=== PATIENT | male | born 1995 | race Caucasian/White ===

== ENCOUNTER 2021-06-20 15:57 | Emergency (ER) | payer SELFPAY ==
[2021-06-20] MEDS ORDERED: ONDANSETRON 4 MG/2 ML INJ IV ONE (17:00)
[2021-06-20] MEDS ORDERED: HYDROmorphone 1 MG/1 ML INJ IV ONE (17:00)
--- NOTE | 2021-06-20 17:03 | Event Note ---
ED Screening Note Date of service: 06/20/21 Time: 17:01 ED Screening Note: 26-year-old male patient presents to the emergency department with complaints of nontraumatic right testicular pain/swelling progressively worsening for 4 days. General: Awake, appropriately interactive, no acute distress. Neck: Supple. Full range of motion intact. Cardiovascular: Normal peripheral perfusion. Pulmonary: No respiratory distress. Patient is speaking normally without use of accessory muscles. Genitourinary: Color Checker (Vane, registration) present. Significant swelling to right testicle with exquisite tenderness and diffuse erythema. Skin: No apparent rashes or lesions. Neurological: No facial asymmetry. Speech is clear. Follows commands. Patient is alert and oriented. Musculoskeletal: Moves all four extremities spontaneously with normal range of motion. Psych: Cooperative. Appropriate mood and affect. High clinical suspicion for testicular torsion. Ultrasound ordered. Attending emergency physician aware. I have greeted and performed a focused rapid initial assessment of this patient. A comprehensive ED assessment and evaluation of the patient, analysis of all test results, and completion of the medical decision-making process will be conducted by additional ED providers. This initial assessment/diagnostic orders/clinical plan/treatment(s) is/are subject to change based on patients health status, clinical progression and re-assessment. Further treatment and workup at subsequent clinical provider's discretion. Patient/guardian urged not to elope from the ED as their condition may be serious if not clinically assessed and managed.
--- NOTE | 2021-06-20 19:06 | Ultrasound Report ---
ULTRASOUND SCROTUM INDICATION / CLINICAL INFORMATION: testicular torsion. COMPARISON: None available. FINDINGS -- RIGHT: TESTIS: No normal appearing testicle is identified. A mass is seen measuring 8.5 x 6.7 x 7.2 cm. A se cond area seen anterior to this mass measures 1.9 x 0.6 x 2 cm. FINDINGS -- LEFT: TESTIS: Size = 4.6 x 1.8 x 2.7 cm. - Appearance: No significant abnormality. - Cyst / Mass: None. - Color Doppler Flow: No significant abnormality. EPIDIDYMIS: No significant abnormality. HYDROCELE: None. VARICOCELE: None demonstrated. ADDITIONAL FINDINGS: None. IMPRESSION: 1. No normal appearing right-sided testicle. What is thought to be a small compressed testicle is see n anterior to a large scrotal mass of uncertain etiology. This contains areas of internal calcificati on and is suspicious. 2. Left testicle normal in appearance. Signer Name: Dominic Huff MD Signed: 06/20/2021 7:01 PM Workstation Name: [id number]
--- NOTE | 2021-06-20 23:47 | Emergency Department Report ---
ED Male HPI - General Chief complaint: Urogenital-Male Stated complaint: SWOLLEN TESTICLE Time Seen by Provider: 06/20/21 23:15 Source: patient Mode of arrival: Ambulatory Limitations: No Limitations - History of Present Illness Initial comments: Patient is a 26-year-old male who presents emergency room with complaints of right testicular pain and swelling. Patient states it started 4 days ago. Patient states the pain is 0 out of 10 when he is laying down and resting. Patient states he only has pain when he is upright or walking. Patient states the pain is mild and is a 3 out of 10. Patient states at this time is not having any pain. Patient states that the right testicle is hard. Patient denies penile discharge. Patient denies dysuria. Patient denies fever or chills. Patient denies abdominal pain. Patient denies any other symptoms. Patient denies any other pain. Patient denies recent travel. Patient denies recent international travel. Patient denies exposure to the novel coronavirus. Patient denies sick contacts. Patient denies fever and chills. Patient denies cough. Patient denies diarrhea. Patient denies coming in contact with anybody with symptoms of the novel coronavirus. Complaint: testicle swelling -: Sudden Location: right testicle Severity: mild Severity scale (0 -10): 0 Consistency: intermittent Improves with: supine, rest Worsens with: movement, other (Standing upright) swelling, mass. denies: discharge, rash, urinary retention, blood in urine, dysuria, fever, nausea/vomiting, incontinence - Related Data Previous Rx's Medication Instructions Recorded Last Taken Type traMADoL [Ultram] 50 mg PO Q4HR PRN #10 tablet 06/20/21 Unknown Rx Allergies Allergy/AdvReac Type Severity Reaction Status Date / Time No Known Allergies Allergy Verified 06/20/21 17:00 ED Review of Systems ROS: Stated complaint: SWOLLEN TESTICLE Other details as noted in HPI Constitutional: denies: chills, fever Eyes: denies: eye pain, eye discharge, vision change ENT: denies: ear pain, throat pain Respiratory: denies: cough, shortness of breath, wheezing Cardiovascular: denies: chest pain, palpitations Endocrine: no symptoms reported Gastrointestinal: denies: abdominal pain, nausea, diarrhea Genitourinary: as per HPI. denies: urgency, dysuria Musculoskeletal: denies: back pain, joint swelling, arthralgia Skin: denies: rash, lesions Neurological: denies: headache, weakness, paresthesias Psychiatric: denies: anxiety, depression Hematological/Lymphatic: denies: easy bleeding, easy bruising ED Past Medical Hx - Past Medical History Previous Medical History?: No - Surgical History Past Surgical History?: No - Family History Family history: no significant - Social History Smoking Status: Never Smoker Substance Use Type: Alcohol - Medications Home Medications: Home Medications Medication Instructions Recorded Confirmed Last Taken Type traMADoL [Ultram] 50 mg PO Q4HR PRN #10 tablet 06/20/21 Unknown Rx ED Physical Exam - General Limitations: No Limitations General appearance: alert, in no apparent distress - Head Head exam: Present: atraumatic, normocephalic - Eye Eye exam: Present: normal appearance - ENT ENT exam: Present: mucous membranes moist - Neck Neck exam: Present: normal inspection - Respiratory Respiratory exam: Present: normal lung sounds bilaterally. Absent: respiratory distress - Cardiovascular Cardiovascular Exam: Present: regular rate, normal rhythm. Absent: systolic murmur, diastolic murmur, rubs, gallop - GI/Abdominal GI/Abdominal exam: Present: soft, normal bowel sounds - Rectal Rectal exam: Present: deferred - exam: Present: scrotal swelling. Absent: testicular tenderness, circumcision - Extremities Exam Extremities exam: Present: normal inspection - Back Exam Back exam: Present: normal inspection - Neurological Exam Neurological exam: Present: alert, oriented X3 - Psychiatric Psychiatric exam: Present: normal affect, normal mood - Skin Skin exam: Present: warm, dry, intact, normal color. Absent: rash ED Course Vital Signs 06/20/21 16:49 Temperature 98.2 F Pulse Rate 90 Respiratory 18 Rate Blood Pressure 145/95 O2 Sat by Pulse 99 Oximetry - Reevaluation(s) Reevaluation #1: I discussed all results and clinical findings with patient. I discussed plan of care with patient. Patient agrees with plan of care. Patient is stable for discharge. Patient will be discharged home. Patient given discharge instructions. Patient voiced understanding of discharge instructions. 06/20/21 23:47 ED Medical Decision Making - Radiology Data Radiology results: report reviewed ULTRASOUND SCROTUM INDICATION / CLINICAL INFORMATION: testicular torsion. COMPARISON: None available. FINDINGS -- RIGHT: TESTIS: No normal appearing testicle is identified. A mass is seen measuring 8.5 x 6.7 x 7.2 cm. A second area seen anterior to this mass measures 1.9 x 0.6 x 2 cm. FINDINGS -- LEFT: TESTIS: Size = 4.6 x 1.8 x 2.7 cm. - Appearance: No significant abnormality. - Cyst / Mass: None. - Color Doppler Flow: No significant abnormality. EPIDIDYMIS: No significant abnormality. HYDROCELE: None. VARICOCELE: None demonstrated. ADDITIONAL FINDINGS: None. IMPRESSION: 1. No normal appearing right-sided testicle. What is thought to be a small compressed testicle is seen anterior to a large scrotal mass of uncertain etiology. This contains areas of internal calcification and is suspicious. 2. Left testicle normal in appearance. - Medical Decision Making Patient is a 26-year-old male who presents emergency room with complaints of right testicular pain and swelling. Patient's symptoms are mild. Patient had an ultrasound in the ER. Patient ultrasound shows a normal left testicle and a normal right testicle with normal blood flow to both. Patient's ultrasound shows a right testicular mass. The radiologist read the mass as suspicious. Patient does not require any further emergency medical service. Patient does not require inpatient services. Patient is stable for discharge. Patient be discharged home. Patient needs to follow-up with a urologist for further evaluation and treatment. Patient given discharge information. I discussed all results and clinical findings with patient. I discussed plan of care with patient. Patient agrees with plan of care. Patient is stable for discharge. Patient will be discharged home. Patient given discharge instructions. Patient voiced understanding of discharge instructions. - Differential Diagnosis Testicular mass, swelling, torsion, epididymitis Critical care attestation.: If time is entered above; I have spent that time in minutes in the direct care of this critically ill patient, excluding procedure time. ED Disposition Clinical Impression: Testicular swelling, right, Testicular mass Disposition: HOME / SELF CARE / HOMELESS Is pt being admited?: No Does the pt Need Aspirin: No Condition: Stable Instructions: Scrotal Swelling Additional Instructions: Patient to follow-up with primary care in 2 to 3 days. Patient to follow-up with urologist in 2 to 3 days. Patient to rest. Patient to increase water. Patient to take Tylenol or ibuprofen as needed for pain. Patient to take meds as directed. Patient to return to the ER if condition worsens, changes or new symptoms arise. Prescriptions: traMADoL [Ultram] 50 mg PO Q4HR PRN #10 tablet PRN Reason: Pain Referrals: PRIMARY CAREMD [Primary Care Provider] - 2-3 Days MEGAN HILL MD [Staff Physician] - 2-3 Days Time of Disposition: 23:52 Print Language: MICRONESIAN
[2021-06-21 00:06] VITALS: BP 125/57
== END 2021-06-21 00:06 | disposition home or self-care (01) ==
LOC: ED 15:57
DX: N50.89 Other specified disorders of the male genital organs (principal); N50.811 Right testicular pain; Z72.89 Other problems related to lifestyle; Z79.899 Other long term (current) drug therapy
CPT/HCPCS: 93975; 96374; 96375; 99283; J1170; J2405

== ENCOUNTER 2021-06-28 12:11 | Outpatient (CLI) | payer OTHER ==
[2021-06-28 14:03] LABS: Blood Urea Nitrogen 10 mg/dL (9-20)
--- NOTE | 2021-06-28 15:30 | Cat Scan Report ---
CT CHEST, ABDOMEN, AND PELVIS WITHOUT IV CONTRAST INDICATION: RIGHT TESTICULAR PAIN. COMPARISON: Testicular ultrasound from 8 days prior. TECHNIQUE: All CT scans at this location are performed using CT dose reduction for ALARA by means of automated e xposure control. Axial CT images were obtained through the chest, abdomen, and pelvis. FINDINGS: Skeletal System: No acute abnormality. Sclerotic lesion along the posterior medial left iliac bone wh ich measures 2.4 cm on axial series 5 image 165 is nonspecific but may be a bone island. CHEST: Heart: Normal. Thoracic Aorta: No acute abnormality. Mediastinum & Milena: No adenopathy is seen. Mild soft tissue density in the anterior superior mediasti num is likely residual thymus. Lungs: No acute air space or interstitial disease. Pleura: No significant pleural effusion. No pneumothorax. Airways: No significant abnormality. Additional Findings: None. ABDOMEN: Liver: Mild diffuse steatosis. Gallbladder: There are several peripherally calcified gallstones. Bile Ducts: No significant abnormality. Adrenals: No significant abnormality. Right Kidney and Proximal Ureter: No significant abnormality. Left Kidney and Proximal Ureter: No significant abnormality. Pancreas: No significant abnormality. Spleen: No significant abnormality. Stomach and Bowel: No significant abnormality. Lymph Nodes: There are a few shotty retroperitoneal nodes, none of these are pathologically enlarged. Aorta: No significant abnormality. IVC: No significant abnormality. Additional Findings: None. PELVIS: Urinary Bladder and Distal Ureters: No significant abnormality. Appendix: No significant abnormality. Colon: No significant abnormality. Free Fluid: None. Lymph Nodes: No significant adenopathy. Additional Findings: Within the right hemiscrotum, there is a 7 cm heterogeneous mass. IMPRESSION: 1. No acute inflammatory process. 2. 7 cm mass in the right hemiscrotum. 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 There are a few shotty retroperitoneal nodes but no pathologically enlarged nodes are seen throughout the chest abdomen and pelvis. 3. Additional, incidental findings as above. Signer Name: Sharad Craig MD Signed: 06/28/2021 3:26 PM Workstation Name: [id number]
== END 2021-06-28 12:12 | disposition home or self-care (01) ==
LOC: CT 12:11
PROVIDERS: ATTEND Urology
DX: K80.80 Other cholelithiasis without obstruction (principal); K76.0 Fatty (change of) liver, not elsewhere classified
CPT/HCPCS: 36415; 71250; 74178; 82565; 84520; Q9967

== ENCOUNTER 2021-07-02 12:05 | Day surgery (SDC) | payer MEDICARE, OTHER ==
[~2021-07-02 12:05] MED LIST: LACTATED RINGERS 1,000 ML IV SCH
[2021-07-02] MEDS ORDERED: LACTATED RINGERS 1,000 ML ONE (12:51)
[2021-07-02] MEDS ORDERED: ACETAMINOPHEN 500 MG TAB PO SCH (13:00)
[2021-07-02] MEDS ORDERED: ONDANSETRON 4 MG/2 ML INJ IV PRN (13:00)
[2021-07-02] MEDS ORDERED: CELECOXIB 200 MG CAP PO NR (13:00)
--- NOTE | 2021-07-02 13:03 | Anesthesia Day of Surgery ---
Anesthesia Day of Surgery - Day of Surgery Patient Examined: Yes Patient H&P Reviewed: Yes Patient is NPO: Yes
--- NOTE | 2021-07-02 13:03 | Anesthesia Consultation ---
Anesthesia Consult and Med Hx Date of service: 07/02/21 - Airway Anesthetic Teeth Evaluation: Chipped ROM Head & Neck: Adequate Mental/Hyoid Distance: Adequate Mallampati Class: Class II Intubation Access Assessment: Good - Pre-Operative Health Status ASA Pre-Surgery Classification: ASA2 Proposed Anesthetic Plan: General - Pulmonary Hx Smoking: Yes (MJ) Hx Sleep Apnea: No (JOSH PRE SCREEN LOW RISK) - Cardiovascular System Hx Hypertension: No - Hematic Hx Anemia: No - Other Systems Hx Substance Use: Yes (MARIJUANA 3 X PER WEEK) Hx Cancer: No
[2021-07-02] MEDS ORDERED: HYDROmorphone 1 MG/1 ML INJ IV PRN ×2 (13:30→14:00)
[2021-07-02] MEDS ORDERED: LIDOCAINE (1%) 10 MG/1 ML VIAL 20 ML MDV ONE (13:46)
[2021-07-02] MEDS ORDERED: BUPIVACAINE/PF (0.25%) 2.5 MG/ML 30 ML VIAL INFILTRATI ONE (13:47)
[2021-07-02] MEDS ORDERED: MAGNESIUM OXIDE 400 MG TAB PO SCH (14:00)
[2021-07-02] MEDS ORDERED: MIDAZOLAM 2 MG/2 ML INJ IV NR (14:00)
[2021-07-02] MEDS ORDERED: ceFAZolin/Water 2 GM/20 ML 2 GM/20 ML SYRINGE IV ONE (14:08)
[2021-07-02] MEDS ORDERED: ONDANSETRON 4 MG/2 ML INJ ONE (15:00)
[2021-07-02] MEDS ORDERED: KETOROLAC 30 MG/1 ML INJ ONE (15:00)
[2021-07-02] MEDS ORDERED: dexAMETHasone 20 MG/5 ML VIAL ONE (15:00)
[2021-07-02] MEDS ORDERED: ceFAZolin/STERILE WATER 2 GM/20 ML SYRINGE IV NR (15:00)
[2021-07-02] MEDS ORDERED: LIDOCAINE MPF (2%) 20 MG/1 ML VIAL 5 ML ONE (15:09)
[2021-07-02] MEDS ORDERED: fentaNYL 100 MCG/2 ML INJ ONE (15:09)
[2021-07-02] MEDS ORDERED: propofoL 200 MG/20 ML VIAL IV ONE ×2 (15:10→15:21)
--- NOTE | 2021-07-02 15:37 | Post Operative Note ---
Date of procedure: 07/02/21 Pre-op diagnosis: r testes tumor Post-op diagnosis: same Findings: as above Procedure: r rad orch Anesthesia: GETA Surgeon: GIOVANI GROSS Estimated blood loss: minimal Pathology: list (testes) Specimen disposition: to lab Condition: stable Disposition: PACU
--- NOTE | 2021-07-02 15:38 | Discharge Summary ---
Short Stay Discharge Plan Activity: other (no lifting or straining ) Weight Bearing Status: Full Weight Bearing Diet: regular Wound: open to air Special Instructions: other (remove dressing in am ) Durable Medical Equipment Needed Upon Discharge: other Follow up with: PRIMARY CARE, [Primary Care Provider] - 7 Days GIOVANI GROSS MD [Staff Physician] - 7 Days
[2021-07-02] MEDS ORDERED: KETAMINE/STERILE WATER 50 MG/ML SYRINGE ONE (15:53)
[2021-07-02] MEDS ORDERED: HYDROmorphone 1 MG/1 ML INJ ONE (15:53)
--- NOTE | 2021-07-02 16:42 | Operative Report ---
DATE OF SURGERY: 07/02/2021 PREOPERATIVE DIAGNOSIS: Large right testis tumor. POSTOPERATIVE DIAGNOSIS: Large right testis tumor. PROCEDURES: Right radical orchiectomy. SURGEONS: Dr. Draper and Dr. Benitez. ANESTHESIA: General. FINDINGS: This is a gentleman with a large tumor in the right hemiscrotum. All risks and implications discussed. His markers were elevated. DESCRIPTION OF PROCEDURE: The patient was brought to the operating room and placed on the operating table. Following induction of anesthesia, placed over the break-in table and prepped and draped in the usual sterile fashion. An oblique incision was made over the right inguinal canal. It was carried through the skin to the external oblique aponeurosis. This was opened and a dilated cord was noted. We isolated the cord and doubly ligated it in two sections at the level of the internal ring. We did not manipulate the testis before doing anything. We actually double looped a [place] around it, so we would not see the tumor. Once the cord was divided, it was doubly suture ligated and then tied with a silk on each segment. Once that was done, we delivered the testis and secured the vessels to the gubernaculum and tied it with a silk. The wound was copiously irrigated throughout the procedure with normal saline. At this point, the testis was removed. The external oblique aponeurosis was approximated with a 2-0 Vicryl, superficial fascia with 3-0 Vicryl, skin with clips and brought to recovery room, minimal blood loss, in stable condition. TID: [id number] RECEIPT: [id number] PATRIA/JENI
[2021-07-02] MEDS ORDERED: oxyCODONE /ACETAMINOPHEN 5-325MG TAB PO PRN (18:00)
--- NOTE | 2021-07-02 18:49 | Post Anesthesia Evaluation ---
- Post Anesthesia Evaluation Patient Participated: Yes Airway Patent: Yes Stable Respiratory Function: Yes Nausea/Vomiting: No Temp > 96.8F: Yes Pain Manageable: Yes Adequeate Hydration: Yes Anesthesia Complications: No Block Receding Appropriately: Not Applicable Patient on Ventilator: No
[2021-07-02 20:29] VITALS: BP 141/86
== END 2021-07-02 12:06 | disposition home or self-care (01) ==
LOC: OR 12:05
PROVIDERS: ATTEND Urology
DX: N50.811 Right testicular pain (principal); Z87.891 Personal history of nicotine dependence; Z79.899 Other long term (current) drug therapy; Z98.890 Other specified postprocedural states
CPT/HCPCS: 54530; 88309; J0690; J1100; J1170; J1885; J2250; J2405; J2704; J3010; J3490; J7120